=== PATIENT | female | born 1990 | race Caucasian/White ===

== ENCOUNTER 2022-02-14 12:47 | Emergency (ER) | payer OTHER, SELFPAY ==
--- NOTE | ~2022-02-14 | XR_ITS ---
EXAMINATION: XR CHEST CLINICAL INFORMATION: Covid positive COMPARISON: None TECHNIQUE: 2 views of the chest were obtained. FINDINGS: No significant abnormality is noted involving the heart, lungs, mediastinum, bony thorax or soft tissues. XR/XR chest 2V IMPRESSION: Unremarkable examination.
[2022-02-14 13:01] VITALS: BP 176/98; PULSE 109; RESP 20; TEMP 36.5; O2SAT 100; BMI 70.4
[2022-02-14 14:47] LABS: Influenza A PCR NEGATIVE (Negative); Influenza B PCR NEGATIVE (Negative); Resp Syncy Virus RNA Qual PCR NEGATIVE (Negative); SARS COV2 PCR INHOUSE POSITIVE (Negative)
--- NOTE | 2022-02-14 17:00 | ED_ITS ---
HPI - General Adult General Chief complaint: Upper Respiratory Symptoms Stated complaint: cold symptoms Time Seen by Provider: 02/14/22 16:34 History of Present Illness HPI narrative: Patient complains of fever cough body aches for 1 day, she has had COVID exposures, she has had 3 COVID shots, she is not short of breath, when she coughs she does get some pain in her chest but only when she coughs Related Data Previous Rx's Medication Instructions Recorded nirmatrelvir 300 mg (150 mg See Rx Instructions PO .COMPLEX 02/14/22 x2)-ritonavir 100 mg tablet,dose #30 ea pack(EUA) (Paxlovid) Allergies Allergy/AdvReac Type Severity Reaction Status Date / Time diazepam [From Valium] Allergy Palpitation Verified 02/14/22 16:44 s sumatriptan [From Imitrex] Allergy Palpitation Verified 02/14/22 16:44 s topiramate [From Topamax] Allergy Palpitation Verified 02/14/22 16:44 s Review of Systems Review of Systems: Positive for fever cough body aches Negatives are no chills no dizziness no weakness no fainting no feeling faint no headache no sore throat no neck pain no stiff neck, chest pain only with cough no other chest pain no exertional pain no shortness of breath no abdominal pain no nausea vomiting or diarrhea no dysuria no leg swelling no pain in the calf, no rashes Yes all other systems are reviewed and are negative [facility] Past Medical History Source: nursing notes reviewed Social History Social History Advance Directives: No Advance Directives Information Provided: Yes Physical Exam ED Vital Signs: Vital Signs - 24 hr 02/14/22 13:01 Temperature 97.7 F Pulse Rate 109 H Respiratory Rate 20 Blood Pressure 176/98 H Pulse Oximetry 100 Oxygen Delivery Method Room Air BMI result Body Mass Index 70.4 General appearance no distress comfortable breathing easily Eyes no redness or discharge The sinuses nontender The pharynx is clear well-hydrated no redness swelling or exudate Neck is supple Chest is clear to auscultation with full symmetric equal breath sounds no respiratory distress Heart no murmur Abdomen soft nontender Extremities for range of motion x4, no peripheral edema, no calf tenderness or swelling Skin no rash Neuro no focal deficits Course Course Course Narrative: COVID positive patient normal x-ray no shortness of breath is given a script for Paxlovid, she does not take any other medications I did repeat her pulse manually which was 88 on repeat exam prior to discharge Medical Decision Making Lab Data Lab results reviewed: Yes I reviewed the patient's lab results. Labs: Lab Results 02/14/22 Range/Units 14:04 Influenza Type A (PCR) NEGATIVE (Negative) Influenza Type B (PCR) NEGATIVE (Negative) RSV RNA Qual (PCR) NEGATIVE (Negative) SARS-CoV-2 RNA (RT-PCR) POSITIVE A (Negative) Discharge Plan Discharge Clinical Impression: COVID-19 Patient Disposition: Home, Self-Care Additional Instructions: COVID test was positive Chest x-ray was normal Prescription was written for Paxlovid medication for COVID Return any time for any worse condition, difficulty breathing any concerns or worse condition COVID breathing exercises are sometimes helpful Prescriptions: New Paxlovid (EUA) 300 mg (150 mg x 2)-100 mg tablets,dose pack See Rx Instructions .ROUTE .COMPLEX Qty: 30 0RF Rx Instructions: take TWO 150 mg tablets of nirmatrelvir with ONE 100 mg tablet of ritonavir twice daily for 5 days Stand Alone Forms: Work/School Release Interventions: ED Discharge Assessment Last Done: 02/14/22 18:17 Discharge Date/Time: 02/14/22 18:18
== END 2022-02-14 18:18 | disposition home or self-care (01) ==
PROVIDERS: Emergency Provider Student in an Organized Health Care Education/Training Program
DX: U07.1 COVID-19 (principal)
CPT/HCPCS: 0241U; 71046; 99282; 99283

== ENCOUNTER 2022-05-01 08:20 | Emergency (ER) | payer OTHER, SELFPAY ==
--- NOTE | ~2022-05-01 | CT_ITS ---
EXAMINATION: CT ABDOMEN AND PELVIS WITHOUT CONTRAST CLINICAL INFORMATION: Right-sided abdominal pain and gross hematuria. COMPARISON: None TECHNIQUE: Multidetector volumetric imaging was performed from the superior aspect of the liver through the pubic symphysis. Sagittal and coronal reformatted images were obtained on the technologist's workstation. This CT examination was performed using dose optimization techniques as appropriate, variously including the following: *Automated exposure control *Adjustment of mA and/or kV according to patient size (this includes techniques or standardized protocols for targeted exams where dose is matched to indication/reason for exam; i.e. extremities or head) *Use of iterative reconstruction technique DLP: 1807 mGy-cm FINDINGS: LOCALIZER IMAGES: Obese body habitus. Normal bowel gas pattern. LUNG BASES: Normal. No pulmonary consolidation or pleural effusion. LIVER: Diffuse hepatic steatosis and mild hepatomegaly. Liver parenchyma has attenuation of approximately 5-10 Hounsfield units. GALLBLADDER AND BILIARY TREE: Gallbladder is without radiopaque stones, wall thickening or pericholecystic fluid. No dilated bile ducts. PANCREAS: Normal for a noncontrast examination. No edema, pancreatic ductal dilatation or mass. SPLEEN: Normal. ADRENAL GLANDS: Normal. KIDNEYS AND URETERS: The kidneys have normal size and cortical thickness. No perinephric edema or fluid collection. No urolithiasis or hydroureteronephrosis. BLADDER: The urinary bladder is underdistended and not well evaluated with noncontrast imaging. Mild diffuse thickening of the bladder wall is suspected. There is mild perivesical edema. No bladder stones. BOWEL AND PERITONEUM: Stomach is unremarkable. No dilated loops of bowel. The appendix is normal. No overt bowel wall thickening or mesenteric fat stranding. No free fluid or pneumoperitoneum. ABDOMINAL WALL: Unremarkable. VASCULATURE: Abdominal aorta is normal in caliber. LYMPH NODES: No pathologic sized lymph nodes in the abdomen or pelvis. No inguinal lymphadenopathy. PELVIC VISCERA: The contraceptive device is well centered within the endometrium. No evidence of uterine or adnexal mass. No pelvic free fluid. MUSCULOSKELETAL: Multilevel discovertebral degenerative change of the visualized lower thoracic spine. Moderate degenerative disc disease of L5-S1. Bilateral pars interarticularis defects of L5 and grade 1 anterolisthesis of L5 on S1. CT/CT abdomen pelvis wo IV con IMPRESSION: * Diffuse hepatic steatosis and mild hepatomegaly. * The urinary bladder is underdistended and not well evaluated. There appears to be mild diffuse thickening of the bladder wall and mild perivesical edema. Findings are suggestive of cystitis. * L5 spondylolysis with grade 1 anterolisthesis of L5 on S1.
[2022-05-01 08:28] VITALS: BP 174/99; PULSE 104; RESP 18; TEMP 36.3; O2SAT 100; BMI 72.6
--- NOTE | 2022-05-01 08:45 | ED_ITS ---
HPI - Female Genitourinary General Chief complaint: Urogenital-Female <RAFIQ Dunne - Last Filed: 05/01/22 11:09> Stated complaint: blood in [place]ine <RAFIQ Dunne Last Filed: 05/01/22 11:09> Time Seen by Provider: 05/01/22 08:45 <RAFIQ Dunne Last Filed: 05/01/22 11:09> Source: patient <RAFIQ Dunne Last Filed: 05/01/22 11:09> Mode of arrival: ambulatory <RAFIQ Dunne Last Filed: 05/01/22 11:09> Limitations: no limitations <RAFIQ Dunne Last Filed: 05/01/22 11:09> History of Present Illness HPI Narrative: 31 yo female with history of HTN, obesity Who presents to the ER for evaluation of acute onset of gross hematuria and dysuria that started at 03:00 this morning when she was at work. She reports initially she had burning and pain with urination and noticed she was passing small blood clots. She states now the urine is very dark and is wine color. She reports ongoing pain with urination and some suprapubic discomfort. She has urgency and frequency as well. She has dribbling. She was just started on hydrochlorothiazide last week for lower extremity swelling and blood pressure. She denies any nausea, vomiting, fever, chills. She reports new onset, 2/10 right lower abdominal pain that just started about an hour ago. <RAFIQ Dunne Last Filed: 11:09> MD elicited complaint: dysuria and other ( Hematuria) <RAFIQ Dunne Last Filed: 05/01/22 11:09> Onset (ago): hour(s) (8) <RAFIQ Dunne Last Filed: 05/01/22 11:09> Location of symptoms: suprapubic <RAFIQ Dunne Last Filed: 05/01/22 11:09> Severity: moderate <RAFIQ Dunne Last Filed: 05/01/22 11:09> Female Urogenital Radiation: Non-Radiating <RAFIQ Dunne Last Filed: 05/01/22 11:09> Severity scale (1-10): 6 <RAFIQ Dunne - Last Filed: 05/01/22 11:09> Quality of pain: burning <RAFIQ Dunne - Last Filed: 05/01/22 11:09> Consistency: intermittent <RAFIQ Dunne - Last Filed: 05/01/22 11:09> Vaginal discharge: none <RAFIQ Dunne - Last Filed: 05/01/22 11:09> Vaginal bleeding: none <RAFIQ Dunne - Last Filed: 05/01/22 11:09> Urinary symptoms: Dysuria, Urgency, Frequency, Hematuria and Difficulty Urinating <RAFIQ Dunne - Last Filed: 05/01/22 11:09> Exacerbating factors: urination <RAFIQ Dunne - Last Filed: 05/01/22 11:09> Relieving factors: none <RAFIQ Dunne - Last Filed: 05/01/22 11:09> Associated symptoms: abdominal pain <RAFIQ Dunne - Last Filed: 05/01/22 11:09> Treatment prior to arrival: none <RAFIQ Dunne - Last Filed: 05/01/22 11:09> Sexual activity: No <RFAIQ Dunne - Last Filed: 05/01/22 11:09> Patient : No <RAFIQ Dunne - Last Filed: 05/01/22 11:09> Related Data Home medications: Previous Rx's Medication Instructions Recorded nirmatrelvir 300 mg (150 mg See Rx Instructions PO .COMPLEX 02/14/22 x2)-ritonavir 100 mg tablet,dose #30 ea pack(EUA) (Paxlovid) nitrofurantoin 100 mg PO Q12H 7 days #14 caps 05/01/22 monohydrate/macrocrystals 100 mg capsule (Macrobid) phenazopyridine 100 mg tablet 100 mg PO TID PRN pain 6 doses #6 05/01/22 (Pyridium) tabs <RAFIQ Dunne - Last Filed: 05/01/22 11:09> Allergies/Adverse reactions: Allergies Allergy/AdvReac Type Severity Reaction Status Date / Time diazepam [From Valium] Allergy Palpitation Verified 02/14/22 16:44 s sumatriptan [From Imitrex] Allergy Palpitation Verified 02/14/22 16:44 s topiramate [From Topamax] Allergy Palpitation Verified 02/14/22 16:44 s <RAFIQ Dunne - Last Filed: 05/01/22 11:09> Review of Systems Review of Systems: Yes all other systems are reviewed and are negative <RAFIQ Dunne - Last Filed: 05/01/22 11:09> [facility] Past Medical History Medical History: Medical History (Updated 05/01/22 @ 10:40 by RAFIQ Dunne) HTN (hypertension) Morbid obesity Sleep apnea <RAFIQ Dunne - Last Filed: 05/01/22 11:09> Surgical History: Surgical History (Updated 05/01/22 @ 09:27 by [place] Sin) [place] teeth extracted <RAFIQ Dunne - Last Filed: 05/01/22 11:09> Social History Social History: Social History Smoked in Last 30 Days: Yes Use of substances other than those prescribed or required for medical reasons: No Advance Directives: No Patient : No <RAFIQ Dunne - Last Filed: 05/01/22 11:09> Physical Exam Vital Signs: Vital Signs: Last Vital Signs Temp 98.0 F 05/01/22 09:26 Pulse 95 05/01/22 09:26 Resp 05/01/22 09:26 BP 140/84 H 05/01/22 09:26 Pulse Ox 100 05/01/22 09:26 O2 Del Method 05/01/22 09:26 BMI result Body Mass Index 72.6 <RAFIQ Dunne - Last Filed: 05/01/22 11:09> Vital Signs: Last Vital Signs Temp 98.0 F 05/01/22 09:26 Pulse 95 05/01/22 09:26 Resp 05/01/22 09:26 BP 140/84 H 05/01/22 09:26 Pulse Ox 100 05/01/22 09:26 O2 Del Method 05/01/22 09:26 BMI result Body Mass Index 72.6 <Juan Carlos Wong MD - Last Filed: 05/01/22 15:54> Appearance: Alert. Oriented X3. No acute distress. Eyes: Pupils equal, round and reactive to light. ENT: Pharynx normal. Neck: Normal inspection. Neck supple. CVS: Normal heart rate and rhythm. Pulses normal. Respiratory: No respiratory distress. Breath sounds normal. Abdomen: Obese, soft with suprapubic tenderness, no rebound or guarding. normal +BS x4 Skin: Skin warm and dry. Normal skin color. Normal skin turgor. No rashes. Extremities: No lower extremity edema. Neuro: Oriented X 3. No motor deficit. No sensory deficit. <RAFIQ Dunne - Last Filed: 05/01/22 11:09> Course Course Course Narrative: 31 yo female with history of obesity & HTN presenting to the ER for jai luation of gross hematuria and dysuria that started 7-8 hours ago. Will get labs, UA, CT scan for further evaluation. <RAFIQ Dunne - Last Filed: 05/01/22 11:09> Reevaluation(s) Reevaluation #1: Labs with gross hematuria and proteinuria. No elevated wbc's or nitrates. CT scan with evidence of cystitis, no evidence of kidney stones. Will treat for acute cystitis and have her stop taking her HCTZ. Will start on antibiotics and Pyridium. Will have her follow up with Urology. Patient agrees with plan. Stable for discharge home. <RAFIQ Dunne - Last Filed: 05/01/22 11:09> Medications Administered Discontinued Medications Generic Name Dose Route Start Last Admin Trade Name Freq PRN Reason Stop Dose Admin Nitrofurantoin Macrocrystals 100 mg 05/01/22 10:42 05/01/22 10:49 Nitrofurantoin Monohyd/M-Cryst 100 Mg Capsule PO 05/01/22 10:43 100 mg ONCE ONE Administration Phenazopyridine HCl 100 mg 05/01/22 10:42 05/01/22 10:49 Phenazopyridine Hcl 100 Mg Tablet PO 05/01/22 10:43 100 mg ONCE ONE Administration <RAFIQ Dunne - Last Filed: 05/01/22 11:09> Medications Administered Discontinued Medications Generic Name Dose Route Start Last Admin Trade Name Freq PRN Reason Stop Dose Admin Nitrofurantoin Macrocrystals 100 mg 05/01/22 10:42 05/01/22 10:49 Nitrofurantoin Monohyd/M-Cryst 100 Mg Capsule PO 05/01/22 10:43 100 mg ONCE ONE Administration Phenazopyridine HCl 100 mg 05/01/22 10:42 05/01/22 10:49 Phenazopyridine Hcl 100 Mg Tablet PO 05/01/22 10:43 100 mg ONCE ONE Administration <Juan Carlos Wong MD - Last Filed: 05/01/22 15:54> Medical Decision Making Differential Diagnosis Differential Diagnoses: The differential diagnosis associated with the presentation includes <RAFIQ Dunne - Last Filed: 05/01/22 11:09> Cystitis, UTI, pyelonephritis, kidney stone, interstitial nephritis, bladder cancer <RAFIQ Dunne - Last Filed: 05/01/22 11:09> Admission/Observation Consideration of admission/observation: Escalation of care including admission/observation considered <RAFIQ Dunne - Last Filed: 05/01/22 11:09> Lab Data MDM Lab Attestation statement: I reviewed the patient's lab results. <RAFIQ Dunne - Last Filed: 05/01/22 11:09> mild leukocytosis, stable H&H, normal kidney function <RAFIQ Dunne - Last Filed: 05/01/22 11:09> Result Diagrams: 05/01/22 09:34 05/01/22 09:34 <RAFIQ Dunne - Last Filed: 05/01/22 11:09> Labs: Lab Results 05/01/22 05/01/22 05/01/22 Range/Units 08:40 08:40 09:34 WBC 13.9 H (4.8-10.8) X10*3/uL RBC 4.85 (4.20-5.50) X10*6/uL Hgb 13.7 (12.0-16.0) g/dl Hct 41.7 (37.0-47.0) % MCV 86.0 (80.0-98.0) fL MCH 28.2 (27.0-33.0) pg MCHC 32.9 (31.0-35.0) g/dl RDW 13.3 (11.0-16.0) % Plt Count 247 (160-400) X10*3/uL MPV 11.7 (9.4-12.3) fL Immature Gran % (Auto) 0.3 (0.0-0.4) % Neut % (Auto) 74.1 H (45-73) % Lymph % (Auto) 19.2 L (20-40) % [place] % (Auto) 5.3 (2-11) % Eos % (Auto) 0.8 (0-4) % Baso % (Auto) 0.3 (0-2) % Lymph # (Auto) 2.7 (1.2-4.9) X10*3/uL [place] # (Auto) 0.7 (0.1-1.2) X10*3/uL Eos # (Auto) 0.1 (0.0-0.4) X10*3/uL Baso # (Auto) 0.0 (0.0-0.2) X10*3/uL Abs Immat Gran (auto) 0.04 H (0.00-0.03) X10*3/uL Absolute Neuts (auto) 10.3 H (2.0-8.3) x10*3/uL Absolute Nucleated RBC 0.000 (0.0-0.012) X10*3/uL Nucleated RBC % (auto) 0.0 (0.0-0.2) /100WBC Sodium (135-145) mmol/L Potassium (3.3-5.1) mmol/L Chloride (96-108) mmol/L Carbon Dioxide (22-29) mmol/L Anion Gap (12-20) BUN (9-16) mg/dL Creatinine (0.5-1.4) mg/dL Estim Creat Clear Calc Estimated GFR Random Glucose (60-115) mg/dL Calcium (8.4-10.2) mg/dL Magnesium (1.6-2.6) mg/dL Total Bilirubin (0.0-1.0) mg/dL Direct Bilirubin (0.0-0.5) mg/dL AST (5-31) U/L ALT (0-31) U/L Alkaline Phosphatase (39-117) U/L Total Protein (6.5-8.0) g/dL Albumin (3.5-5.0) g/dL Urine Color RED Urine Appearance Turbid Urine pH 6.0 (5.0-9.0) Ur Specific [place] 1.025 (1.005-1.025) Urine Protein 300 (3+) H (Neg-Trace) mg/dL Urine Glucose (UA) Negative (Negative) mg/dL Urine Ketones Negative (Negative) mg/dL Urine Blood Large (3+) H (Negative) Urine Nitrite Negative (Negative) Ur Leukocyte Esterase Negative (Negative) Urine RBC >20 H (0-2) /HPF Urine WBC 0-5 (0-5) /HPF Ur Squamous Epith Cells 3-5 (0-2) /HPF Urine Bacteria 1+ (None Seen) Hyaline Casts 0-2 (0-2) /LPF Urine Test NEGATIVE (NEGATIVE) 05/01/22 Range/Units 09:34 WBC (4.8-10.8) X10*3/uL RBC (4.20-5.50) X10*6/uL Hgb (12.0-16.0) g/dl Hct (37.0-47.0) % MCV (80.0-98.0) fL MCH (27.0-33.0) pg MCHC (31.0-35.0) g/dl RDW (11.0-16.0) % Plt Count (160-400) X10*3/uL MPV (9.4-12.3) fL Immature Gran % (Auto) (0.0-0.4) % Neut % (Auto) (45-73) % Lymph % (Auto) (20-40) % [place] % (Auto) (2-11) % Eos % (Auto) (0-4) % Baso % (Auto) (0-2) % Lymph # (Auto) (1.2-4.9) X10*3/uL [place] # (Auto) (0.1-1.2) X10*3/uL Eos # (Auto) (0.0-0.4) X10*3/uL Baso # (Auto) (0.0-0.2) X10*3/uL Abs Immat Gran (auto) (0.00-0.03) X10*3/uL Absolute Neuts (auto) (2.0-8.3) x10*3/uL Absolute Nucleated RBC (0.0-0.012) X10*3/uL Nucleated RBC % (auto) (0.0-0.2) /100WBC Sodium 137 (135-145) mmol/L Potassium 3.9 (3.3-5.1) mmol/L Chloride 100 (96-108) mmol/L Carbon Dioxide 29 (22-29) mmol/L Anion Gap 12 (12-20) BUN 21 H (9-16) mg/dL Creatinine 0.73 (0.5-1.4) mg/dL Estim Creat Clear Calc 188.2 Estimated GFR > 60 Random Glucose 125 H (60-115) mg/dL Calcium 9.1 (8.4-10.2) mg/dL Magnesium 1.9 (1.6-2.6) mg/dL Total Bilirubin 0.5 (0.0-1.0) mg/dL Direct Bilirubin 0.2 (0.0-0.5) mg/dL AST 23 (5-31) U/L ALT 23 (0-31) U/L Alkaline Phosphatase 107 (39-117) U/L Total Protein 7.8 (6.5-8.0) g/dL Albumin 3.8 (3.5-5.0) g/dL Urine Color Urine Appearance Urine pH (5.0-9.0) Ur Specific [place] (1.005-1.025) Urine Protein (Neg-Trace) mg/dL Urine Glucose (UA) (Negative) mg/dL Urine Ketones (Negative) mg/dL Urine Blood (Negative) Urine Nitrite (Negative) Ur Leukocyte Esterase (Negative) Urine RBC (0-2) /HPF Urine WBC (0-5) /HPF Ur Squamous Epith Cells (0-2) /HPF Urine Bacteria (None Seen) Hyaline Casts (0-2) /LPF Urine Test (NEGATIVE) <RAFIQ Dunne - Last Filed: 05/01/22 11:09> Lab Results 05/01/22 05/01/22 05/01/22 Range/Units 08:40 08:40 09:34 WBC 13.9 H (4.8-10.8) X10*3/uL RBC 4.85 (4.20-5.50) X10*6/uL Hgb 13.7 (12.0-16.0) g/dl Hct 41.7 (37.0-47.0) % MCV 86.0 (80.0-98.0) fL MCH 28.2 (27.0-33.0) pg MCHC 32.9 (31.0-35.0) g/dl RDW 13.3 (11.0-16.0) % Plt Count 247 (160-400) X10*3/uL MPV 11.7 (9.4-12.3) fL Immature Gran % (Auto) 0.3 (0.0-0.4) % Neut % (Auto) 74.1 H (45-73) % Lymph % (Auto) 19.2 L (20-40) % [place] % (Auto) 5.3 (2-11) % Eos % (Auto) 0.8 (0-4) % Baso % (Auto) 0.3 (0-2) % Lymph # (Auto) 2.7 (1.2-4.9) X10*3/uL [place] # (Auto) 0.7 (0.1-1.2) X10*3/uL Eos # (Auto) 0.1 (0.0-0.4) X10*3/uL Baso # (Auto) 0.0 (0.0-0.2) X10*3/uL Abs Immat Gran (auto) 0.04 H (0.00-0.03) X10*3/uL Absolute Neuts (auto) 10.3 H (2.0-8.3) x10*3/uL Absolute Nucleated RBC 0.000 (0.0-0.012) X10*3/uL Nucleated RBC % (auto) 0.0 (0.0-0.2) /100WBC Sodium (135-145) mmol/L Potassium (3.3-5.1) mmol/L Chloride (96-108) mmol/L Carbon Dioxide (22-29) mmol/L Anion Gap (12-20) BUN (9-16) mg/dL Creatinine (0.5-1.4) mg/dL Estim Creat Clear Calc Estimated GFR Random Glucose (60-115) mg/dL Calcium (8.4-10.2) mg/dL Magnesium (1.6-2.6) mg/dL Total Bilirubin (0.0-1.0) mg/dL Direct Bilirubin (0.0-0.5) mg/dL AST (5-31) U/L ALT (0-31) U/L Alkaline Phosphatase (39-117) U/L Total Protein (6.5-8.0) g/dL Albumin (3.5-5.0) g/dL Urine Color RED Urine Appearance Turbid Urine pH 6.0 (5.0-9.0) Ur Specific [place] 1.025 (1.005-1.025) Urine Protein 300 (3+) H (Neg-Trace) mg/dL Urine Glucose (UA) Negative (Negative) mg/dL Urine Ketones Negative (Negative) mg/dL Urine Blood Large (3+) H (Negative) Urine Nitrite Negative (Negative) Ur Leukocyte Esterase Negative (Negative) Urine RBC >20 H (0-2) /HPF Urine WBC 0-5 (0-5) /HPF Ur Squamous Epith Cells 3-5 (0-2) /HPF Urine Bacteria 1+ (None Seen) Hyaline Casts 0-2 (0-2) /LPF Urine Test NEGATIVE (NEGATIVE) 05/01/22 Range/Units 09:34 WBC (4.8-10.8) X10*3/uL RBC (4.20-5.50) X10*6/uL Hgb (12.0-16.0) g/dl Hct (37.0-47.0) % MCV (80.0-98.0) fL MCH (27.0-33.0) pg MCHC (31.0-35.0) g/dl RDW (11.0-16.0) % Plt Count (160-400) X10*3/uL MPV (9.4-12.3) fL Immature Gran % (Auto) (0.0-0.4) % Neut % (Auto) (45-73) % Lymph % (Auto) (20-40) % [place] % (Auto) (2-11) % Eos % (Auto) (0-4) % Baso % (Auto) (0-2) % Lymph # (Auto) (1.2-4.9) X10*3/uL [place] # (Auto) (0.1-1.2) X10*3/uL Eos # (Auto) (0.0-0.4) X10*3/uL Baso # (Auto) (0.0-0.2) X10*3/uL Abs Immat Gran (auto) (0.00-0.03) X10*3/uL Absolute Neuts (auto) (2.0-8.3) x10*3/uL Absolute Nucleated RBC (0.0-0.012) X10*3/uL Nucleated RBC % (auto) (0.0-0.2) /100WBC Sodium 137 (135-145) mmol/L Potassium 3.9 (3.3-5.1) mmol/L Chloride 100 (96-108) mmol/L Carbon Dioxide 29 (22-29) mmol/L Anion Gap 12 (12-20) BUN 21 H (9-16) mg/dL Creatinine 0.73 (0.5-1.4) mg/dL Estim Creat Clear Calc 188.2 Estimated GFR > 60 Random Glucose 125 H (60-115) mg/dL Calcium 9.1 (8.4-10.2) mg/dL Magnesium 1.9 (1.6-2.6) mg/dL Total Bilirubin 0.5 (0.0-1.0) mg/dL Direct Bilirubin 0.2 (0.0-0.5) mg/dL AST 23 (5-31) U/L ALT 23 (0-31) U/L Alkaline Phosphatase 107 (39-117) U/L Total Protein 7.8 (6.5-8.0) g/dL Albumin 3.8 (3.5-5.0) g/dL Urine Color Urine Appearance Urine pH (5.0-9.0) Ur Specific [place] (1.005-1.025) Urine Protein (Neg-Trace) mg/dL Urine Glucose (UA) (Negative) mg/dL Urine Ketones (Negative) mg/dL Urine Blood (Negative) Urine Nitrite (Negative) Ur Leukocyte Esterase (Negative) Urine RBC (0-2) /HPF Urine WBC (0-5) /HPF Ur Squamous Epith Cells (0-2) /HPF Urine Bacteria (None Seen) Hyaline Casts (0-2) /LPF Urine Test (NEGATIVE) <Rangel [place], MD - Last Filed: 05/01/22 15:54> Independent Interpretation I performed an independent interpretation of an: CT Scan <RAFIQ Dunne - Last Filed: 05/01/22 11:09> Interpretation: inflamed bladder, no visualized kidney stones. No other acute abnormality. <RAFIQ Dunne Last Filed: 05/01/22 11:09> Radiology Impression Discussion of test interpretation with radiology: I have reviewed the radiologist's reading. <RAFIQ Dunne - Last Filed: 05/01/22 11:09> Radiologist Impression: IMPRESSION: *? Diffuse hepatic steatosis and mild hepatomegaly. *? The urinary bladder is underdistended and not well evaluated. There appears to be mild diffuse thickening of the bladder wall and mild perivesical edema. Findings are suggestive of cystitis. *? 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 <RAFIQ Dunne - Last Filed: 05/01/22 11:09> Prescription Management I considered prescription management with: Pain Medication and Antibiotic <RAFIQ Dunne - Last Filed: 05/01/22 11:09> Chronic Conditions Patient?s care impacted by: Hypertension and Other ( Morbid obesity) <RAFIQ Dunne Last Fi led: 05/01/22 11:09> Attestation Attending Attestation: I personally reviewed PA/resident/nurse practitioner note. I reviewed a all results and treatment plan. I agree with the assessment and plan. I agree with disposition <Juan Carlos Wong MD - Last Filed: 05/01/22 15:54> Critical Care Time Critical Care Time Critical Care Time: No <RAFIQ Dunne - Last Filed: 05/01/22 11:09> Discharge Plan Discharge Clinical Impression: Cystitis <RAFIQ Dunne Last Filed: 05/01/22 11:09> Patient Disposition: Home, Self-Care <RAFIQ Dunne Last Filed: 05/01/22 11:09> Instructions: Interstitial Cystitis (ED) <RAFIQ Dunne Last Filed: 05/01/22 11:09> Additional Instructions: Your urine test today showed protein and blood. Your CT scan showed inflammation of the bladder. Take the prescribed antibiotic as directed. Complete the entire course. Take the prescribed medication as needed for pain. This may cause your urine to turn orange, this is a normal side effect. Increase oral hydration, make sure drinking plenty of water. Recommend following up with Urology for further evaluation of your bloody urine and bladder inflammation. If you develop new or worsening symptoms call 911 or come back to the ER for further evaluation. <RAFIQ Dunne - Last Filed: 05/01/22 11:09> Prescriptions: New phenazopyridine [Pyridium] 100 mg tablet 100 mg PO TID PRN (Reason: pain) Qty: 6 0RF nitrofurantoin monohyd/m-cryst [Macrobid] 100 mg capsule 100 mg PO Q12H 7 Days Qty: 14 0RF Rx Instructions: must administer with a meal/food No Action Paxlovid (EUA) 300 mg (150 mg x 2)-100 mg tablets,dose pack See Rx Instructions .ROUTE .COMPLEX Qty: 30 0RF Rx Instructions: take TWO 150 mg tablets of nirmatrelvir with ONE 100 mg tablet of ritonavir twice daily for 5 days <RAFIQ Dunne - Last Filed: 05/01/22 11:09> Referrals: [facility] [place] [facility] Services [Provider Group] <RAFIQ Dunne - Last Filed: 05/01/22 11:09> Stand Alone Forms: Work/School Release <RAFIQ Dunne - Last Filed: 05/01/22 11:09> Interventions: ED Discharge Assessment Last Done: 05/01/22 10:57 <RAFIQ Dunne - Last Filed: 05/01/22 11:09> Discharge Date/Time: 05/01/22 10:57 <RAFIQ Dunne - Last Filed: 05/01/22 11:09>
[2022-05-01 08:50] LABS: UPreg QC Valid YES; Urine Pregnancy NEGATIVE (NEGATIVE)
[2022-05-01 08:54] LABS: Appearance Urine Turbid; Color Urine RED; Glucose Urine UA Negative (Negative); Leukocyte Esterase Urine Negative (Negative); Nitrite Urine Negative (Negative); UMIC TRIGGER UACC YES; Urine Blood Large (3+) (Negative); Urine Ketones Negative (Negative); Urine Protein 300 (3+) mg/dL (Neg-Trace)
[2022-05-01 08:55] LABS: Specific Gravity - Urine 1.025 (1.005-1.025)
[2022-05-01 09:05] LABS: Bacteria Urine 1+ (None Seen); Hyaline Casts Urine 0-2 /LPF (0-2); RBC Urine >20 /HPF (0-2); WBC Urine 0-5 /HPF (0-5)
[2022-05-01 09:26] VITALS: BP 140/84; PULSE 95; RESP 20; TEMP 36.7; O2SAT 100
[2022-05-01 09:37] LABS: MANUAL DIFF FLAG NO
[2022-05-01 09:40] LABS: Basophils Percent Auto 0.3 % (0-2); Eosinophils Absolute Auto 0.1 X10*3/uL (0.0-0.4); Eosinophils Percent Auto 0.8 % (0-4); Hematocrit 41.7 % (37.0-47.0); Hemoglobin 13.7 g/dl (12.0-16.0); Imm Gran Abs Auto 0.04 X10*3/uL (0.00-0.03); Imm Gran Pct Auto 0.3 % (0.0-0.4); Lymphocytes Absolute Auto 2.7 X10*3/uL (1.2-4.9); Lymphocytes Percent Auto 19.2 % (20-40); Mean Corpuscular HGB Conc 32.9 g/dl (31.0-35.0); Mean Corpuscular Hemoglobin 28.2 pg (27.0-33.0); Mean Platelet Volume 11.7 fL (9.4-12.3); Monocytes Absolute Auto 0.7 X10*3/uL (0.1-1.2); Monocytes Percent Auto 5.3 % (2-11); Neutrophils Absolute Auto 10.3 x10*3/uL (2.0-8.3); Neutrophils Percent Auto 74.1 % (45-73); Platelet Count 247 X10*3/uL (160-400); Red Blood Count 4.85 X10*6/uL (4.20-5.50); Red Cell Distribution Width 13.3 % (11.0-16.0); White Blood Count 13.9 X10*3/uL (4.8-10.8)
[2022-05-01 10:17] LABS: Alanine Aminotransferase 23 U/L (0-31); Albumin Level 3.8 g/dL (3.5-5.0); Alkaline Phosphatase 107 U/L (39-117); Anion Gap 12 (12-20); Aspartate Amino Transferase 23 U/L (5-31); Bilirubin Direct 0.2 mg/dL (0.0-0.5); Bilirubin Total 0.5 mg/dL (0.0-1.0); Blood Urea Nitrogen 21 mg/dL (9-16); Calcium 9.1 mg/dL (8.4-10.2); Carbon Dioxide 29 mmol/L (22-29); Chloride 100 mmol/L (96-108); Creatinine Clr Calc Pharmacy 188.2; Estimated Glomerular Filt Rate > 60; Glucose Random 125 mg/dL (60-115); Magnesium 1.9 mg/dL (1.6-2.6); Potassium 3.9 mmol/L (3.3-5.1); Sodium 137 mmol/L (135-145); Total Protein 7.8 g/dL (6.5-8.0)
[2022-05-01] MEDS: Phenazopyridine HCL 100 MG TABLET PO (10:49)
[2022-05-01] MEDS: Nitrofurantoin Monohyd/M-Cryst 100 MG CAPSULE PO (10:49)
== END 2022-05-01 10:57 | disposition home or self-care (01) ==
PROVIDERS: Physician Assistant; Emergency Provider Emergency Medicine; PCP Family Medicine
DX: N30.91 Cystitis, unspecified with hematuria (principal); I10 Essential (primary) hypertension; E66.9 Obesity, unspecified; Z68.45 Body mass index [BMI] 70 or greater, adult; R30.9 Painful micturition, unspecified
CPT/HCPCS: 36415; 74176; 80048; 80076; 81001; 81025; 83735; 85025; 99284

== ENCOUNTER 2022-11-30 03:14 | Emergency (ER) | payer OTHER, SELFPAY ==
[2022-11-30 03:38] VITALS: BP 153/97; PULSE 66; RESP 20; TEMP 36.7; O2SAT 100; BMI 76.0
--- NOTE | 2022-11-30 04:03 | ED.DENTAL ---
HPI - Dental/Oral General Chief complaint: Dental/Oral Stated complaint: Pain in mouth Time Seen by Provider: 11/30/22 03:47 Source: patient Mode of arrival: ambulatory Limitations: no limitations History of Present Illness HPI Narrative: 32-year-old female s/p dental extraction of 14 upper teeth yesterday, patient is only on ibuprofen 800 mg tablet which is not controlling her pain, patient also takes amoxicillin prescribed by the dentist. Came in today complaining of severe mouth pain that is not controlled by ibuprofen. No fever, no chills Related Data Previous Rx's Medication Instructions Recorded nirmatrelvir 300 mg (150 mg See Rx Instructions PO .COMPLEX 02/14/22 x2)-ritonavir 100 mg tablet,dose #30 ea pack (Paxlovid) nitrofurantoin 100 mg PO Q12H 7 days #14 caps 05/01/22 monohydrate/macrocrystals 100 mg capsule (Macrobid) phenazopyridine 100 mg tablet 100 mg PO TID PRN pain 6 doses #6 05/01/22 (Pyridium) tabs oxycodone 5 mg tablet 5 mg PO Q8H PRN pain #10 tabs 11/30/22 Allergies Allergy/AdvReac Type Severity Reaction Status Date / Time diazepam [From Valium] Allergy Palpitation Verified 11/30/22 03:58 s sumatriptan [From Imitrex] Allergy Palpitation Verified 11/30/22 03:58 s topiramate [From Topamax] Allergy Palpitation Verified 11/30/22 03:58 s Review of Systems Review of Systems: All other systems are reviewed and are negative Constitutional: Reports as per HPI and Reports no additional constitutional complaints Eyes: Reports as per HPI and Reports no additional eye complaints Reports system reviewed and no additional complaints, except as documented Cardiovascular: Reports as per HPI and Reports no additional cardiovascular complaints Respiratory: Reports as per HPI and Reports no additional respiratory complaints Gastrointestinal: Reports as per HPI and Reports no additional gastrointestinal complaints Genitourinary: Reports no additional female genitourinary complaints Musculoskeletal: Reports no additional musculoskeletal complaints Skin/Breast: Reports system reviewed and no additional complaints, except as docu Psychiatric: Reports no additional psychiatric complaints Endocrine: Reports no additional endocrine complaints Hematologic/Lymphatic: Reports no additional hematologic/lymphatic complaints Allergic/Immunologic: Reports no additional allergic/immunologic complaints Reports system reviewed and no additional complaints, except as documented and Reports Abnormal speech present [facility] Past Medical History Medical History HTN (hypertension) Morbid obesity Sleep apnea Surgical History [place] teeth extracted Social History Social History Alcohol intake: current Alcohol intake frequency: holidays/special occasions only Smoked in Last 30 Days: Yes Use of substances other than those prescribed or required for medical reasons: No Advance Directives: No Advance Directives Information Provided: Yes Patient : No Physical Exam Vital Signs: Vital Signs: Last Vital Signs Temp 98.1 F 11/30/22 03:38 Pulse 66 11/30/22 03:38 Resp 20 11/30/22 03:38 BP 153/97 H 11/30/22 03:38 Pulse Ox 100 11/30/22 03:38 O2 Del Method Room Air 11/30/22 03:38 BMI result Body Mass Index 76.0 Vital signs have been reviewed as appeared to be correct. Blood pressure normal. Heart rate normal. Respiration rate normal. Temperature normal. Oxygen saturation normal. Appearance: Alert. Oriented X3. No acute distress. Head: Normal external exam. Normocephalic. Atraumatic. No Gruber signs noted. No raccoon eyes noted, s/p all upper teeth extraction, diffuse gum tenderness with mild swelling (patient is already on amoxicillin by dentist). Eyes: PERRLA. EOMI. Conjunctiva and sclera normal. Eyelids normal. ENT: TM's Normal. Pharynx normal. Uvula midline. Moist mucous membranes. No trismus noted. No drooling noted. No muffled voice noted. Neck: Normal inspection. Neck supple. FROM. No adenopathy. Thyroid Normal. No meningeal signs. No neck mass noted. CVS: Normal heart rate and rhythm. Heart sound normal. No murmurs noted. Pulses normal throughout. Respiratory: No respiratory distress. Painless inspiration. Breath sounds normal. No wheezes/rales/rhonchi noted. Chest nontender. No accessory muscle usage noted or decreased air movement noted. Abdomen: Soft and nontender. Bowel sounds normal in all 4 quadrants. No distention noted. No organomegaly noted. No visible injury noted. Back: No CVA tenderness. Full range of motion noted. Skin: Skin warm and dry. Normal skin color. Normal skin turgor. No rashes/lesions/lacerations noted. Extremities: No lower extremity edema. Extremities exhibit normal range of motion. Extremities nontender. Neuro: Oriented X 3. Cranial nerve exam: II-XII are grossly intact No motor deficit. No sensory deficit. Reflexes normal. Course Course Course Narrative: S/p upper dental extraction with insufficient pain control will prescribe the patient oxycodone and continue with the antibiotic as per dentist. Medical Decision Making Differential Diagnosis Differential Diagnoses: The differential diagnosis associated with the presentation includes (Post extraction pain, gingivitis, dental abscess.) Admission/Observation Consideration of admission/observation: Escalation of care including admission/observation considered Discharge Plan Discharge Clinical Impression: Toothache Patient Disposition: Home, Self-Care Instructions: Toothache (ED) Prescriptions: New oxycodone 5 mg tablet 5 mg PO Q8H PRN (Reason: pain) Qty: 10 0RF Rx Instructions: Partial Fill upon patient request. No Action Paxlovid 300 mg (150 mg x 2)-100 mg tablets,dose pack See Rx Instructions .ROUTE .COMPLEX Qty: 30 0RF Rx Instructions: take TWO 150 mg tablets of nirmatrelvir with ONE 100 mg tablet of ritonavir twice daily for 5 days phenazopyridine [Pyridium] 100 mg tablet 100 mg PO TID PRN (Reason: pain) Qty: 6 0RF nitrofurantoin monohyd/m-cryst [Macrobid] 100 mg capsule 100 mg PO Q12H 7 Days Qty: 14 0RF Rx Instructions: must administer with a meal/food
== END 2022-11-30 04:22 | disposition home or self-care (01) ==
PROVIDERS: Emergency Provider Emergency Medicine; PCP Family Medicine
DX: K08.89 Other specified disorders of teeth and supporting structures (principal); Z79.899 Other long term (current) drug therapy
CPT/HCPCS: 99283; 99284

== ENCOUNTER 2023-03-14 18:02 | Emergency (ER) | payer OTHER, SELFPAY ==
[2023-03-14 18:06] VITALS: BP 190/113; PULSE 92; RESP 18; TEMP 36.3; O2SAT 100; BMI 71.2
--- NOTE | 2023-03-14 18:10 | ED.GENADULT ---
HPI - General Adult General Chief complaint: Upper Respiratory Symptoms Stated complaint: SORE THROAT/FLU LIKE SYMPTOMS Time Seen by Provider: 03/14/23 19:06 Source: patient Mode of arrival: ambulatory Limitations: no limitations History of Present Illness HPI narrative: 32 yold female with pmh of HTN presents to the ED for sore throat, coughing, and bodyaches. patient states her had similar symtpoms. patietn denies any chest pain or shortness of breath. Related Data Previous Rx's Medication Instructions Recorded nirmatrelvir 300 mg (150 mg See Rx Instructions PO .COMPLEX 02/14/22 x2)-ritonavir 100 mg tablet,dose #30 ea pack (Paxlovid) nitrofurantoin 100 mg PO Q12H 7 days #14 caps 05/01/22 monohydrate/macrocrystals 100 mg capsule (Macrobid) phenazopyridine 100 mg tablet 100 mg PO TID PRN pain 6 doses #6 05/01/22 (Pyridium) tabs oxycodone 5 mg tablet 5 mg PO Q8H PRN pain #10 tabs 11/30/22 Allergies Allergy/AdvReac Type Severity Reaction Status Date / Time diazepam [From Valium] Allergy Palpitation Verified 03/14/23 18:06 s sumatriptan [From Imitrex] Allergy Palpitation Verified 03/14/23 18:06 s topiramate [From Topamax] Allergy Palpitation Verified 03/14/23 18:06 s Review of Systems Review of Systems: Cough, bodyaches, and sore throaat Yes all other systems are reviewed and are negative PMFSH Past Medical History Medical History HTN (hypertension) Morbid obesity Sleep apnea Surgical History [place] teeth extracted Social History Social History Alcohol intake: current Alcohol intake frequency: holidays/special occasions only Advance Directives: No Advance Directives Information Provided: No Physical Exam ED Vital Signs: Vital Signs - 24 hr 03/14/23 18:06 03/14/23 19:20 Temperature 97.3 F Pulse Rate 92 85 Respiratory Rate 18 18 Blood Pressure 190/113 H 158/94 H Pulse Oximetry 100 Oxygen Delivery Method Room Air BMI result Body Mass Index 71.2 Const General: cooperative, healthy appearing, comfortable, no acute distress, well developed, alert, awake and Physically active Orientation/consciousness: oriented to person, oriented to place, oriented to time and patient oriented x3 HENMT Head: Yes normal to inspection, Yes No palpable skull fracture present, Yes normocephalic, Yes atraumatic and No abrasion Ears: hearing grossly normal bilaterally, external ears normal, TM's normal bilaterally, TM normal on the right, TM normal on the left, EAC's normal, mastoids normal and no periauricular adenopathy Throat: Yes posterior oropharynx normal, Yes tonsils normal and Yes uvula midline Eyes General: appearance normal, both eyes and all related structures Neck Neck: Yes normal visual inspection, Yes full ROM, Yes no lymphadenopathy, Yes no meningeal signs, Yes trachea midline, Yes supple, No anterior neck swelling and No tender Chest Chest palpation & inspection: normal inspection of the chest and normal palpation of entire chest wall Resp Effort & Inspection: normal respiratory effort and able to speak in complete sentences Auscultation: clear to auscultation bilaterally Cardio Jugular venous distension: no JVD Heart sounds: S1 normal heart sound present and S2 normal heart sound present GI Inspection: Yes normal to inspection Palpation (GI): Soft to palpation, not firm, nontender and no guarding General: No CVA tenderness and Yes no CVA tenderness Back/Spine/Pelvis Back: no CVA tenderness, No CVA tenderness and No back tenderness Skin General skin exam: no rashes or lesions noted, elasticity normal and turgor normal Neuro General: oriented to person, oriented to place, oriented to time, patient oriented x3, gait normal, tone normal, moves all extremities, Normal light touch and pain sensation, no meningeal signs, no focal motor deficits, CN's II-XI intact bilaterally and normal sensation to monofilament Extrem General: Yes normal to inspection and Yes full ROM Psych Appearance: grossly normal, well kempt and not disheveled Course Course Course Narrative: RME: 32 yold female presents to the ED for sore throat, vomitting, cough and diarrhea. patient denies chest and shortness pain. Strep and SARS ordered Medical Decision Making Medical Decision Making [facility] [place] Narrative: 32-year-old female with URI symptoms such as sore throat coughing body aches. Patient denies any chest pain or shortness of breath. Patient positive for RSV. Blood pressure improved. Patient did not take her hydrochlorothiazide today. Patient informed to take her hydrochlorothiazide and educated on risk of heart attack stroke and kidney failure. Patient well-appearing Differential Diagnosis Differential Diagnoses: The differential diagnosis associated with the presentation includes (RSV COVID SARs) Admission/Observation Consideration of admission/observation: Escalation of care including admission/observation considered Lab Data MDM Lab Attestation statement: I reviewed the patient's lab results. Labs: Lab Results 03/14/23 Range/Units 18:35 Influenza Type A (PCR) NEGATIVE (Negative) Influenza Type B (PCR) NEGATIVE (Negative) RSV RNA Qual (PCR) POSITIVE A (Negative) SARS-CoV-2 RNA (RT-PCR) NEGATIVE (Negative) S. pyogenes GrpA VANESSA Negative (Negative) External Record Review External record reviewed: Other (Prior visit) Discharge Plan Discharge Clinical Impression: Respiratory syncytial virus (RSV) Patient Disposition: Home, Self-Care Instructions: Respiratory Syncytial Virus (ED) Additional Instructions: Return to the ED for any chest pain, shortness of breath, weakness, dizziness, or any other concerning symptoms. Please follow-up with the primary care provider. Prescriptions: No Action Paxlovid 300 mg (150 mg x 2)-100 mg tablets,dose pack See Rx Instructions .ROUTE .COMPLEX Qty: 30 0RF Rx Instructions: take TWO 150 mg tablets of nirmatrelvir with ONE 100 mg tablet of ritonavir twice daily for 5 days phenazopyridine [Pyridium] 100 mg tablet 100 mg PO TID PRN (Reason: pain) Qty: 6 0RF nitrofurantoin monohyd/m-cryst [Macrobid] 100 mg capsule 100 mg PO Q12H 7 Days Qty: 14 0RF Rx Instructions: must administer with a meal/food oxycodone 5 mg tablet 5 mg PO Q8H PRN (Reason: pain) Qty: 10 0RF Rx Instructions: Partial Fill upon patient request. Stand Alone Forms: Work/School Release Interventions: ED Discharge Assessment Last Done: 03/14/23 20:26 Discharge Date/Time: 03/14/23 20:26 Print Language: Indonesian
[2023-03-14 18:54] LABS: IDNOW Serial# 08D9AD1C; Strep A Nucleic Acid Negative (Negative)
[2023-03-14 19:20] VITALS: BP 158/94; PULSE 85; RESP 18
[2023-03-14 19:21] LABS: Influenza A PCR NEGATIVE (Negative); Influenza B PCR NEGATIVE (Negative); Resp Syncy Virus RNA Qual PCR POSITIVE (Negative); SARS COV2 PCR INHOUSE NEGATIVE (Negative)
== END 2023-03-14 20:26 | disposition home or self-care (01) ==
PROVIDERS: Physician Assistant; Emergency Provider Internal Medicine; PCP Family Medicine
DX: J22 Unspecified acute lower respiratory infection (principal); J02.9 Acute pharyngitis, unspecified; I10 Essential (primary) hypertension; R05.9 Cough, unspecified; Z20.822 Contact with and (suspected) exposure to COVID-19; Z20.828 Contact with and (suspected) exposure to other viral communicable diseases
CPT/HCPCS: 0241U; 87651; 99282

== ENCOUNTER 2023-12-02 13:15 | Emergency (ER) | payer OTHER, SELFPAY ==
[2023-12-02 13:29] VITALS: BP 154/99; PULSE 100; RESP 18; TEMP 36.4; O2SAT 98; BMI 72.2
[2023-12-02 14:30] LABS: Influenza A PCR NEGATIVE (Negative); Influenza B PCR NEGATIVE (Negative); Resp Syncy Virus RNA Qual PCR NEGATIVE (Negative); SARS COV2 PCR INHOUSE POSITIVE (Negative)
[2023-12-02 16:52] VITALS: BP 153/101; PULSE 85; RESP 18; TEMP 36.6; O2SAT 98
--- NOTE | 2023-12-02 16:56 | ED.GENADULT ---
HPI - General Adult General Chief complaint: General Medical Stated complaint: covid symptoms Time Seen by Provider: 12/02/23 16:56 Source: patient Mode of arrival: ambulatory Limitations: no limitations History of Present Illness ED Provider: MAGNO KNIGHT PA-C HPI narrative: 33 year old female with pmhx significant for migraines, HTN, morbid obesity presents to the ED today for evaluation of myalgias, chills, nasal congestion, and loss of taste/ smell x2 days. Admits her best friend and fiance both have covid. Denies fever, sob, dyspnea, chest pain. Related Data Previous Rx's ?Medication ?Instructions ?Recorded nirmatrelvir 300 mg (150 mg See Rx Instructions PO .COMPLEX 02/14/22 x2)-ritonavir 100 mg tablet,dose #30 ea pack (Paxlovid) nitrofurantoin 100 mg PO Q12H 7 days #14 caps 05/01/22 monohydrate/macrocrystals 100 mg capsule (Macrobid) phenazopyridine 100 mg tablet 100 mg PO TID PRN pain 6 doses #6 05/01/22 (Pyridium) tabs oxycodone 5 mg tablet 5 mg PO Q8H PRN pain #10 tabs 11/30/22 cyclobenzaprine 5 mg tablet 5 mg PO TID PRN muscle spasm #10 12/02/23 tabs fluticasone propionate 50 1 spray intranasal DAILY PRN 12/02/23 mcg/actuation nasal congestion 3 days #16 grams spray,suspension (Flonase Allergy Relief) Allergies Allergy/AdvReac Type Severity Reaction Status Date / Time diazepam [From Valium] Allergy Palpitation Verified 12/02/23 13:30 s sumatriptan [From Imitrex] Allergy Palpitation Verified 12/02/23 13:30 s topiramate [From Topamax] Allergy Palpitation Verified 12/02/23 13:30 s Review of Systems Review of Systems: Constitutional: No fever, chills, fatigue, night sweats, weight changes ENT/Mouth: No ear pain, hearing loss, nasal congestion, sinus pain, rhinorrhea, sore throat, +congestion, +loss of taste/ smell Eyes: No eye pain, swelling, redness, vision changes, discharge Cardio: No chest pain, palpitations, HUNTER, orthopnea, peripheral edema Pulm: No SOB, cough, sputum, wheezing, dyspnea, hemoptysis GI: No nausea, vomiting, hematemesis, abdominal pain, diarrhea, constipation, hematochezia, melena : No irregular bleeding, dysuria, frequency, urgency, hesitancy, hematuria, flank pain, urinary flow changes, urinary incontinence or retention MSK: No back pain, neck pain, joint pain, myalgias Skin: No lesions, rashes Neuro: No weakness, numbness, paresthesias, LOC, dizziness, headache Psych: No anxiety/panic, depression, SI/HI, AH/VH All other systems reviewed and are negative. [facility] Past Medical History Attestation statement: The following information was validated with the patient. Source: old records reviewed and nursing notes reviewed Medical History Morbid obesity HTN (hypertension) Sleep apnea Surgical History [place] teeth extracted Social History Social History Alcohol intake: current Alcohol intake frequency: holidays/special occasions only Advance Directives: No Advance Directives Information Provided: No Do you have a plan to hurt others: No Plan Physical Exam ED Vital Signs: Vital Signs - 24 hr 12/02/23 13:29 12/02/23 16:52 12/02/23 16:57 Temperature 97.6 F 97.8 F 97.8 F Pulse Rate 100 85 85 Respiratory Rate 18 18 18 Blood Pressure 154/99 H 153/101 H 153/101 H Pulse Oximetry 98 98 98 Oxygen Delivery Method Room Air Room Air BMI result Body Mass Index 72.2 Vital signs stable, afebrile, not hypoxic Const General: cooperative, healthy appearing, comfortable and no acute distress Orientation/consciousness: patient oriented x3 Limitations: no limitations HENMT Other: Posterior oropharynx without erythema or edema. No tonsillar exudates. No peritonsillar masses. Uvula midline. Controlling secretions and speaking complete sentences. Head: Yes normal to inspection, Yes No palpable skull fracture present, Yes normocephalic and Yes atraumatic Face and sinus: Yes normal facial exam Mouth: Normal oral and palatal mucosa present Eyes General: appearance normal, both eyes and all related structures Pupils: Equal, round and reactive pupils present Neck Neck: Yes normal visual inspection, Yes full ROM and Yes no lymphadenopathy Chest Chest palpation & inspection: normal inspection of the chest and normal palpation of entire chest wall Resp Effort & Inspection: normal respiratory effort and able to speak in complete sentences Auscultation: clear to auscultation bilaterally Cardio Rate: regular rate Rhythm: regular rhythm Skin General skin exam: no rashes or lesions noted Neuro General: patient oriented x3 Cranial nerves: Yes Equal, round and reactive pupils present Course Course Course Narrative: 1700 -- patient tested positive for COVID. She tested negative for flu, RSV. I did discuss results with patient. Educated on symptomatic treatment. Will send Flonase to pharmacy for congestion. Advised to speak with PCP regarding Paxlovid. Patient has remained stable throughout ED visit today. Discussed worrisome signs and symptoms and when to return to the ED. All questions answered at this time. Patient is agreeable with disposition and stable for discharge. Medical Decision Making Medical Decision Making [facility] Narrative: 33 year old female with pmhx significant for migraines, HTN, morbid obesity presents to the ED today for evaluation of myalgias, chills, nasal congestion, and loss of taste/ smell x2 days. Patient hypertensive, vitals otherwise WNL. Afebrile. Not hypoxic. Lungs are CTA bilaterally. Posterior oropharynx and bilateral EAC/TMs are WNL. Skin warm, dry, intact, no rashes. Patient likely has COVID secondary to recent exposure. Plan for viral serology and re-evaluation. Differential Diagnosis Differential Diagnoses: The differential diagnosis associated with the presentation includes as above. Admission/Observation not indicated. Lab Data [facility] Lab Attestation statement: I reviewed the patient's lab results. as above. Labs: Lab Results 12/02/23 Range/Units 13:46 Influenza Type A (PCR) NEGATIVE (Negative) Influenza Type B (PCR) NEGATIVE (Negative) RSV RNA Qual (PCR) NEGATIVE (Negative) SARS-CoV-2 RNA (RT-PCR) POSITIVE A (Negative) External Record Review External record reviewed: Inpatient record Prescription Management I considered prescription management with: Other (flonase) Social Determinants Patient?s care significantly limited by Social Determinants of Health including: Other Social Determinant of Health Critical Care Time Critical Care Time Critical Care Time: No Discharge Plan Discharge Clinical Impression: COVID-19 Patient Disposition: Home, Self-Care Instructions: COVID-19 (Coronavirus Disease 2019) (ED) Additional Instructions: Today you tested positive for COVID-19.? Take Ibuprofen or Tylenol as needed for fevers or body aches.? Quarantine for 5 days and ensure you wear a mask. After 5 days you should wear a mask for 5 days after that.? Practice social distancing and good hand hygiene. Drink plenty of fluids. Follow-up with your primary care provider this week. Return to the emergency department with new or worsening symptoms. In case of emergency call 911 You can purchase a pulse oximeter from your local pharmacy or grocery store, and monitor your oxygen saturation if it goes below 94% you should return to the emergency department for further evaluation. Prescriptions: New fluticasone propionate [Flonase Allergy Relief] 50 mcg/actuation spray,suspension 1 spray intranasal DAILY PRN (Reason: congestion) 3 Days Qty: 16 0RF Rx Instructions: administer into each nostril cyclobenzaprine 5 mg tablet 5 mg PO TID PRN (Reason: muscle spasm) Qty: 10 0RF No Action Paxlovid 300 mg (150 mg x 2)-100 mg tablets,dose pack See Rx Instructions .ROUTE .COMPLEX Qty: 30 0RF Rx Instructions: take TWO 150 mg tablets of nirmatrelvir with ONE 100 mg tablet of ritonavir twice daily for 5 days phenazopyridine [Pyridium] 100 mg tablet 100 mg PO TID PRN (Reason: pain) Qty: 6 0RF nitrofurantoin monohyd/m-cryst [Macrobid] 100 mg capsule 100 mg PO Q12H 7 Days Qty: 14 0RF Rx Instructions: must administer with a meal/food oxycodone 5 mg tablet 5 mg PO Q8H PRN (Reason: pain) Qty: 10 0RF Rx Instructions: Partial Fill upon patient request. Referrals: Angie Leiva MD [Primary Care Provider] - Stand Alone Forms: Work/School Release Interventions: ED Discharge Assessment Last Done: 12/02/23 16:57 Print Language: Montserratian
[2023-12-02 16:57] VITALS: BP 153/101; PULSE 85; RESP 18; TEMP 36.6; O2SAT 98
== END 2023-12-02 17:11 | disposition home or self-care (01) ==
LOC: HO.ED 17:01
PROVIDERS: Physician Assistant Medical; Emergency Provider Emergency Medicine; PCP Family Medicine
DX: U07.1 COVID-19 (principal)
CPT/HCPCS: 0241U; 99282; 99283

== ENCOUNTER 2024-02-06 23:26 | Emergency (ER) | payer OTHER, SELFPAY ==
--- NOTE | ~2024-02-06 | XR_ITS ---
EXAMINATION: XR CHEST CLINICAL INFORMATION: Cough COMPARISON: 02/14/2022 TECHNIQUE: 2 views of the chest were obtained. FINDINGS: No significant abnormality is noted involving the heart, lungs, mediastinum, bony thorax or soft tissues. XR/XR chest 2V IMPRESSION: Unremarkable examination. Electronically signed by: Ovi Osorio MD 02/07/2024 12:58 AM EDT
[2024-02-06 23:36] VITALS: BP 182/109; PULSE 95; RESP 20; TEMP 36.6; O2SAT 97; BMI 70.8
[2024-02-06 23:43] VITALS: O2SAT 97
--- NOTE | 2024-02-06 23:56 | ED.URI ---
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 for cough mostly dry for last 3 days does have sore throat no chest pain no significant shortness of breath saturating 97% at room air on arrival patient's blood pressure was 182/109 repeat blood pressure 132/78 Related Data Previous Rx's ?Medication ?Instructions ?Recorded nirmatrelvir 300 mg (150 mg See Rx Instructions PO .COMPLEX 02/14/22 x2)-ritonavir 100 mg tablet,dose #30 ea pack (Paxlovid) nitrofurantoin 100 mg PO Q12H 7 days #14 caps 05/01/22 monohydrate/macrocrystals 100 mg capsule (Macrobid) phenazopyridine 100 mg tablet 100 mg PO TID PRN pain 6 doses #6 05/01/22 (Pyridium) tabs oxycodone 5 mg tablet 5 mg PO Q8H PRN pain #10 tabs 11/30/22 cyclobenzaprine 5 mg tablet 5 mg PO TID PRN muscle spasm #10 12/02/23 tabs fluticasone propionate 50 1 spray intranasal DAILY PRN 12/02/23 mcg/actuation nasal congestion 3 days #16 grams spray,suspension (Flonase Allergy Relief) albuterol sulfate 90 mcg/actuation 2 puff inhalation Q6H PRN 02/07/24 aerosol inhaler shortness of breath or wheezing #8.5 grams benzonatate 200 mg capsule 200 mg PO TID PRN cough #20 caps 02/07/24 cefuroxime axetil 500 mg tablet 500 mg PO BID 10 days #20 tabs 02/07/24 Allergies Allergy/AdvReac Type Severity Reaction Status Date / Time diazepam [From Valium] Allergy Palpitation Verified 02/06/24 23:39 s sumatriptan [From Imitrex] Allergy Palpitation Verified 02/06/24 23:39 s topiramate [From Topamax] Allergy Palpitation Verified 02/06/24 23:39 s Review of Systems Review of Systems: Yes all other systems are reviewed and are negative [facility] Past Medical History Medical History Morbid obesity HTN (hypertension) Sleep apnea Surgical History [place] teeth extracted Social History Social History Alcohol intake: current Alcohol intake frequency: does not drink Smoked in Last 30 Days: No Use of substances other than those prescribed or required for medical reasons: No Advance Directives: No Advance Directives Information Provided: Yes Do you have a plan to hurt others: No Plan Patient : No Physical Exam Vital Signs: Vital Signs: Last Vital Signs Temp 97.9 F 02/06/24 23:36 Pulse 81 02/07/24 00:28 Resp 20 02/07/24 00:28 BP 129/78 02/07/24 00:19 Pulse Ox 97 02/06/24 23:43 O2 Del Method Room Air 02/06/24 23:43 BMI result Body Mass Index 70.8 Appearance: Alert. Oriented X3. No acute distress. Eyes: No pallor or icterus ENT: Pharynx normal. Oral Mucosa moist Neck: Normal inspection. Neck supple. CVS: Normal heart rate and rhythm. Pulses normal. Respiratory: No respiratory distress. Equal air entry bilateral, bilateral wheezing decreased air entry no rales Abdomen: Soft and nontender. Bowel sounds are present, no mass palpable, no CVA tenderness Skin: Skin warm and dry. Normal skin color. Normal skin turgor. Extremities: No lower extremity edema. No calf tenderness Neuro: Oriented X 3. No motor deficit. Medications Administered Discontinued Medications Generic Name Dose Route Start Last Admin Trade Name Freq PRN Reason Stop Dose Admin Albuterol Sulfate 2 puff 02/07/24 00:17 02/07/24 00:26 Albuterol Sulfate 90 Mcg 8 Gm Inhaler INHALE 02/07/24 00:18 2 puff ONCE ONE Administration Benzonatate 200 mg 02/07/24 00:17 02/07/24 00:27 Benzonatate 100 Mg Capsule PO 02/07/24 00:18 200 mg ONCE ONE Administration Cefuroxime Axetil 500 mg 02/07/24 00:17 02/07/24 00:24 Cefuroxime Axetil 500 Mg Tablet PO 02/07/24 00:18 500 mg ONCE ONE Administration Medical Decision Making Medical Decision Making [facility] Narrative: Patient has acute bronchitis will prescribe cefuroxime and Tessalon along with albuterol inhaler Lab Data [facility] Lab Attestation statement: I reviewed the patient's lab results. Labs: Lab Results 02/07/24 Range/Units 00:10 COVID-19 (IESHA) Negative (Negative) COVID-19 Clin Com See Note Influenza Type A (VANESSA) Negative (Negative) Influenza Type B (VANESSA) Negative (Negative) Influenza A & B Note See Note Independent Interpretation I performed an independent interpretation of an: Plain X-Ray Interpretation: No pneumonia Discharge Plan Discharge Clinical Impression: Bronchitis Patient Disposition: Home, Self-Care Instructions: Acute Bronchitis (ED) Additional Instructions: Take antibiotic as prescribed Cough drops as prescribed Use inhaler 2 puffs every 4-6 hours as needed Follow with your PCP if not better Prescriptions: New benzonatate 200 mg capsule 200 mg PO TID PRN (Reason: cough) Qty: 20 0RF cefuroxime axetil 500 mg tablet 500 mg PO BID 10 Days Qty: 20 0RF albuterol sulfate 90 mcg/actuation HFA aerosol inhaler 2 puff inhalation Q6H PRN (Reason: shortness of breath or wheezing) Qty: 8.5 0RF No Action Paxlovid 300 mg (150 mg x 2)-100 mg tablets,dose pack See Rx Instructions .ROUTE .COMPLEX Qty: 30 0RF Rx Instructions: take TWO 150 mg tablets of nirmatrelvir with ONE 100 mg tablet of ritonavir twice daily for 5 days phenazopyridine [Pyridium] 100 mg tablet 100 mg PO TID PRN (Reason: pain) Qty: 6 0RF nitrofurantoin monohyd/m-cryst [Macrobid] 100 mg capsule 100 mg PO Q12H 7 Days Qty: 14 0RF Rx Instructions: must administer with a meal/food oxycodone 5 mg tablet 5 mg PO Q8H PRN (Reason: pain) Qty: 10 0RF Rx Instructions: Partial Fill upon patient request. fluticasone propionate [Flonase Allergy Relief] 50 mcg/actuation spray,suspension 1 spray intranasal DAILY PRN (Reason: congestion) 3 Days Qty: 16 0RF Rx Instructions: administer into each nostril cyclobenzaprine 5 mg tablet 5 mg PO TID PRN (Reason: muscle spasm) Qty: 10 0RF Print Language: Spanish
[2024-02-07 00:19] VITALS: BP 129/78
--- NOTE | 2024-02-07 00:20 | MHC.EDTECH ---
vitals taken blood pressure only per orders from Dr Garcia
[2024-02-07] MEDS: cefuroxime axetiL 500 MG TABLET PO (00:24)
[2024-02-07] MEDS: Albuterol Sulfate 90 MCG 8 GM INHALER 2 PUFF INHALE (00:26)
[2024-02-07] MEDS: Benzonatate 100 MG CAPSULE 200 MG PO (00:27)
[2024-02-07 00:28] VITALS: PULSE 81; RESP 20; O2SAT 100
[2024-02-07 00:32] LABS: COVID-19 Test Negative (Negative); IDNOW Serial# 08D9AD1C
[2024-02-07 00:36] LABS: IDNOW Serial# 9DB6401D; Influenza A Negative (Negative); Influenza B2 Negative (Negative)
[2024-02-07 01:05] VITALS: BP 147/92; PULSE 85; RESP 18; TEMP 36.8; O2SAT 100
[2024-02-07 01:06] VITALS: BP 147/92; PULSE 85; RESP 18; TEMP 36.8; O2SAT 100
== END 2024-02-07 01:06 | disposition home or self-care (01) ==
PROVIDERS: Emergency Provider Internal Medicine; PCP Family Medicine
DX: J40 Bronchitis, not specified as acute or chronic (principal); R05.9 Cough, unspecified; J02.9 Acute pharyngitis, unspecified; Z11.52 Encounter for screening for COVID-19
CPT/HCPCS: 71046; 87502; 87635; 94640; 99284; 99285

== ENCOUNTER 2025-02-20 00:22 | Emergency (ER) | payer OTHER, SELFPAY ==
--- NOTE | ~2025-02-20 | CT_ITS ---
CLINICAL HISTORY: dysuria, hematuria. kidney stones? CT abdomen and pelvis without contrast Comparison: CT/SR - CT ABDOMEN PELVIS WITHOUT IV CONTRAST - 05/01/22 09:16 EST Findings: The lung bases are clear. Hepatomegaly. Splenomegaly. Gallbladder and solid organs otherwise unremarkable. No urolithiasis. No bowel obstruction, pneumoperitoneum, or pneumatosis. Uterus and ovaries unremarkable. IUD adequately positioned. Perivesical fat stranding. The bones are intact. IMPRESSION: 1. No urolithiasis or hydronephrosis. 2. Abnormal urinary bladder. Consider cystitis. 3. Hepatosplenomegaly. This document has been electronically signed by: He Barnes MD on 02/20/2025 03:50:08
[2025-02-20 00:24] VITALS: BP 171/96; PULSE 111; RESP 20; TEMP 36.1; O2SAT 96; BMI 69.8
--- OUTSIDE RECORDS SUMMARY | 2025-02-20 00:50 | XMS_ITS | Clinical Summary ---
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 Active magnesium oxide 400 mg magnesium Tab Take by mouth. Active Social History Tobacco Use Types Packs/Day Years Used Date Smoking Tobacco: Some Days Smokeless Tobacco: Never Comments:pt vapes Education Answer Date Recorded Are you interested in more education? Not on julien e 08/08/2022 Are you concerned about learning? Not on file 08/08/2022 No 08/08/2022 No 08/08/2022 Digital Access Answer Date Recorded No 09/06/2022 No 09/06/2022 No 09/06/2022 Reliable internet access at home? Not on file 09/06/2022 Device with a working camera? Not on file Comments Unknown Sex and Gender Information Value Date Recorded Sex Assigned at Female 01/22/2021 2:34 PM EDT Legal Sex Female 10:25 AM EDT Gender Identity Female 01/22/2021 2:34 PM EDT Sexual Orientation Straight 01/22/2021 2: 34 PM EDT Last Filed Vital Signs Vital Sign Reading Time Taken Comments Blood Pressure - - Pulse - - Temperature - - Respiratory Rate - - Oxygen Saturation - - Inhaled Oxygen Concentration - - Weight 182.8 kg (403 lb) 01/22/2021 2:36 PM EDT Height 160 cm (5' 3 ) 01/22/2021 2:36 PM EDT Body Mass Index 71.39 01/22/2021 2:36 PM EDT Plan of Treatment Health Maintenance Due Date Last Done Comments DEPRESSION SCREENING 2003 SMOKING Hx and SMOKELESS TOBACCO SCREENING 08/20/2004 HEPATITIS C SCREENING 08/20/2009 HIV ONE-TIME SCREENING (18-6 5 YEARS) 08/20/2009 PNEUMOCOCCAL VACCINES (0-49 years) (1 of 2 - PCV) 08/20/2010 PAP SMEAR 04/23/2024 04/23/2021 INFLUENZA VACCINE (#1) 2024 02/06/2021 COVID-19 VACCINE ( - 2024-2 6 season) 2024 04/19/2021, 10/11/2020, 09/13/2020 Adult Td,Tdap Booster 12/13/2030 12/13/2020 HEPATITIS A VACCINES Aged Out No long er eligible based on patient's age to complete this topic HIB VACCINES Aged Out No longer eligi ble based on patient's age to complete this topic IPV VACCINES Aged Out No longer eligi ble based on patient's age to complete this topic MENINGOCOCCAL VACCINES (ACWY) Aged Out No longer eligible based on patient's age to complete this topic MENINGOCOCCAL VACCINES (B) Aged Out N o longer eligible based on patient's age to complete this topic Medical Devices Not on file Procedures Procedure Name Priority Date/Time Associated Diagnosis Comments PAP TEST Routine 04/23/2021 12:00 AM EST from Last 3 Months or Most Recently Relevant to Health Maintenance Results * Pap Smear (04/23/2021 12:00 AM EST) 04/23/2021 04/24/2021 9:4 0 AM EST Narrative SEE NARRATIVE - 04/29/2021 3:19 PM EST [address] [id number] [employer]: Lucila Sapp MD DIRECTOR OF STRATEGIC INITIATIVES Cytology Report FINAL DIAGNOSIS A. PAP SMEAR (SUREPATH) CE: SPECIMEN ADEQUACY: Satisfactory for evaluation; transformation zone absent/insufficient. INTERPRETATION: NEGATIVE FOR INTRAEPITHELIAL LESION OR MALIGNANCY. Electronically Signed Out By: ELTON Pringle(ASCP) The Pap test is a screening test primarily for squamous cancers and precursors and has associated false-negative and false-positive results. New technologies such as liquid-based preparations may decrease but will not eliminate all false-negative results. Regular sampling and follow-up of unexplained clinical signs and symptoms are recommended to minimize false negative results. CLINICAL HISTORY Date of Last Menstrual Period: 01-30-2021 Other Clinical Conditions: Screening Pap SPECIMEN SOURCE A: PAP SMEAR (SUREPATH) CE Patient Name: APURVA SULLIVAN : 1990 (Age: 30) Sex: F Institution: [facility] Location: [facility] Date of Collection: 04/23/2021 Date of Reported: 04/29/2021 15:19 Results to: Angie Leiva MD, BS Angie Leiva MD CYTOLOGY ORDERABLES Final Result SEE NARRATIVE from Last 3 Months or Most Recently Relevant to Health Maintenance Insurance [employer] [place] [address] [place] [address] PPO EPO [employer] PPO [employer] PPO [facility] PPO EPO [employer] [place] [place] OF [place] [address] [place] [address] PPO EPO BLUE [facility] PPO AETNA PPO BLUE [facility] PPO EPO BLUE [facility] PPO AETNA PPO [place] EPO [place] OUT OF [facility] PPO AETNA PPO BLUE [facility] PPO EPO [place] OF STATE PPO [employer] PPO [facility] PPO EPO [place] OUT OF [facility] [place] [address] [place] [address] PPO EPO BLUE [facility] PPO [place] PPO EPO [place]UE [place] [facility] PPO 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 It is not the complete legal health record.Formerly [facility]
--- NOTE | 2025-02-20 01:31 | ED_ITS ---
HPI - Female Genitourinary General Chief complaint: Urogenital-Female Stated complaint: Blood In Urine Time Seen by Provider: 02/20/25 01:26 Source: patient Mode of arrival: ambulatory Limitations: no limitations History of Present Illness ED Provider: Giancarlo Akins HPI Narrative: 33-year-old female history of UTI presents to ED for dysuria with blood in urine. Patient denies abdominal pain, nausea, vomiting, fever or chills. Related Data Previous Rx's ?Medication ?Instructions ?Recorded nirmatrelvir 300 mg (150 mg See Rx Instructions PO .CO MPLEX 02/14/22 x2)-ritonavir 100 mg tablet,dose #30 ea pack (Paxlovid) nitrofurantoin 100 mg PO Q12H 7 days #14 ca ps 05/01/22 monohydrate/macrocrystals 100 mg capsule (Macrobid) phenazopyridine 100 mg tablet 100 mg PO TID PRN pain 6 doses #6 05/01/22 (Pyridium) tabs oxycodone 5 mg tablet 5 mg PO Q8H PRN pain #10 tab s 11/30/22 cyclobenzaprine 5 mg tablet 5 mg PO TID PRN muscle spa sm #10 12/02/23 tabs fluticasone propionate 50 1 spray intranasal DAILY PRN 12/02/23 mcg/actuation nasal congestion 3 days #16 grams spray,suspension (Flonase Allergy Relief) albuterol sulfate 90 mcg/actuation 2 puff inhalation Q 6H PRN 02/07/24 aerosol inhaler shortness of breath or wheez ing #8.5 grams benzonatate 200 mg capsule 200 mg PO TID PRN cough #20 caps 02/07/24 cefuroxime axetil 500 mg tablet 500 mg PO BID 10 days #20 tabs 02/07/24 dicyclomine 20 mg tablet 20 mg PO QID PRN abdominal p ain 02/20/25 #12 tabs ketorolac 10 mg tablet 10 mg PO Q6H PRN pain #20 ta bs 02/20/25 phenazopyridine 200 mg tablet 200 mg PO TID PRN pain # 10 tabs 02/20/25 (Pyridium) Allergies Allergy/AdvReac Type Severity Reaction Status Date / Time diazepam (From Valium) Allergy Palpitation Verified 02/20/25 00:25 s sumatriptan (From Imitrex) Allergy Palpitation Verified 02/20/25 00:25 s topiramate (From Topamax) Allergy Palpitation Verified 02/20/25 00:25 s Review of Systems 2 Review of Systems: Dysuria hematuria Yes all other systems are reviewed and are negative [facility] Past Medical History Medical History Morbid obesity HTN (hypertension) Sleep apnea Surgical History [place] teeth extracted Social History Social History Alcohol intake: current Alcohol intake frequency: does not drink Physical Exam 2 Vital Signs: Vital Signs: Last Vital Signs Temp 98.4 F 02/20/25 04:28 Pulse 84 02/20/25 04:28 Resp 20 02/20/25 04:28 BP 135/77 02/20/25 04:28 Pulse Ox 99 02/20/25 04:28 O2 Del Method Room Air 02/20/25 04:28 BMI result Body Mass Index 69.8 Const: General: cooperative, healthy appearing, comfortable, no acute distress, well developed, alert, awake and Physically active O rientation/consciousness: patient oriented x3 HEENT: Head: Yes normal to inspection, Yes No palpable skull fracture present, Yes normocephalic and Yes atraumatic Eyes: General: appearance normal, both eyes and all related structures Neck: Neck: Yes normal visual inspection, Yes full ROM, Yes no lymphadenopathy, Yes no meningeal signs, Yes trachea midline, Yes supple, No anterior neck swelling and No tender Chest: Chest palpation & inspection: normal inspection of the chest and normal palpation of entire chest wall Resp: Effort & Inspection: normal respiratory effort and able to speak in complete sentences Auscultation: clear to auscultation bilaterally Cardio: Jugular venous distension: no JVD Heart sounds: S1 normal heart sound present and S2 normal heart sound present GI: Inspection: Yes normal to inspection Palpation (GI): Soft to palpation, not firm, nontender, no guarding and not rigid : General: Yes no CVA tenderness Back/Spine/Pelvis: Back: no CVA tenderness and No back tenderness Skin: General skin exam: no rashes or lesions noted, elasticity normal and turgor normal Neuro: General: patient oriented x3, gait normal, tone normal, moves all extremities, Normal light touch and pain sensation, no meningeal signs, no focal motor deficits, CN's II-XI intact bilaterally and normal sensation to monofilament Extrem: General: Yes normal to inspection, Yes full ROM and Yes capillary refill normal Psych: Appearance: grossly normal, well kempt and not disheveled Course Reevaluation(s) Reevaluation #1: I Reyna Plaza PA-C have accepted care of the patient at signed out pending labs, imaging and final disposition Labs: Slight leukocytosis with left shift, not anemic, no electrolyte abnormality, urine not infected passing a great amount of hematuria not infected CT abdomen and pelvis:Findings: The lung bases are clear. Hepatomegaly. Splenomegaly. Gallbladder and solid organs otherwise unremarkable. No urolithiasis. No bowel obstruction, pneumoperitoneum, or pneumatosis. Uterus and ovaries unremarkable. IUD adequately positioned. Perivesical fat stranding. The bones are intact. IMPRESSION: 1. No urolithiasis or hydronephrosis. 2. Abnormal urinary bladder. Consider cystitis. 3. Hepatosplenomegaly. Medications Administered Discontinued Medications Generic Name Dose Route Start Last Admin Trade Name Freq PRN Reason Stop Dose Admin Dicyclomine HCl 20 mg 02/20/25 02:13 02/20/25 03:05 Dicyclomine Hcl 10 Mg Capsule PO 02/20/25 02:14 20 mg ONCE ONE Administration Ketorolac Tromethamine 15 mg 02/20/25 02:13 02/20/25 03:06 Ketorolac Tromethamine 15 Mg/Ml Vial IM 02/20/25 02:14 15 mg ONCE ONE Administration Phenazopyridine HCl 200 mg 02/20/25 02:13 02/20/25 03:05 Phenazopyridine Hcl 200 Mg Tablet PO 02/20/25 02:14 200 mg ONCE ONE Administration Medical Decision Making Medical Decision Making MDM Narrative: 33 year female presents to ED for dysuria or hematuria with a any abdominal pain nausea vomiting or flank pain. Patient states no fever or chills. Patient's urine shows hematuria without any bacterial leuko esterase. We will do labs and CAT scan. Signed out TIERRA Anderson. Differential Diagnosis Differential Diagnoses: The differential diagnosis associated with the presentation includes (kdiney stones, UTI, pylenophritis) Admission/Observation Consideration of admission/observation: Escalation of care including admission/observation considered Lab Data MDM Lab Attestation statement: I reviewed the patient's lab results. 02/20/25 02:05 02/20/25 02:05 Labs: Lab Results 02/20/25 02/20/25 Range/Units 01:28 02:05 WBC 12.7 H (4.8-10.8) X10*3/uL RBC 4.84 (4.20-5.50) X10*6/uL Hgb 13.8 (12.0-16.0) g/dl Hct 42.5 (37.0-47.0) % MCV 87.8 (80.0-98.0) fL MCH 28.5 (27.0-33.0) pg MCHC 32.5 (31.0-35.0) g/dl RDW 13.6 (11.0-16.0) % Plt Count 239 (160-400) X10*3/uL MPV 12.1 (9.4-12.3) fL Immature Gran % (Auto) 0.3 (0.0-0.4) % Neut % (Auto) 77.1 H (45-73) % Lymph % (Auto) 16.7 L (20-40) % Elk % (Auto) 4.6 (2-11) % Eos % (Auto) 1.0 (0-4) % Baso % (Auto) 0.3 (0-2) % Lymph # (Auto) 2.1 (1.2-4.9) X10*3/uL Elk # (Auto) 0.6 (0.1-1.2) X10*3/uL Eos # (Auto) 0.1 (0.0-0.4) X10*3/uL Baso # (Auto) 0.0 (0.0-0.2) X10*3/uL Abs Immat Gran (auto) 0.04 H (0.00-0.03) X10*3/uL Absolute Neuts (auto) 9.8 H (2.0-8.3) x10*3/uL Absolute Nucleated RBC 0.000 (0.0-0.012) X10*3/uL Nucleated RBC % (auto) 0.0 (0.0-0.2) /100WBC Sodium 140 (135-145) mmol/L Potassium 4.0 (3.3-5.1) mmol/L Chloride 104 (96-108) mmol/L Carbon Dioxide 27 (22-29) mmol/L Anion Gap 13 (12-20) BUN 16 (9-16) mg/dL Creatinine 0.58 (0.5-1.4) mg/dL Estim Creat Clear Calc 224.1 Estimated GFR > 60 Random Glucose 114 (60-115) mg/dL Calcium 9.2 (8.4-10.2) mg/dL Total Bilirubin 0.4 (0.0-1.0) mg/dL AST 24 (5-31) U/L ALT 22 (0-31) U/L Alkaline Phosphatase 116 (39-117) U/L Total Protein 7.9 (6.5-8.0) g/dL Albumin 4.1 (3.5-5.0) g/dL Urine Color DK YELLOW Urine Appearance Hazy Urine pH 6.5 (5.0-9.0) Ur Specific [place] >= 1.030 H (1.005-1.025) Urine Protein 300 (3+) H (Neg-Trace) mg/dL Urine Glucose (UA) Negative (Negative) mg/dL Urine Ketones Trace (Negative) mg/dL Urine Blood Large (3+) H (Negative) Urine Nitrite Negative (Negative) Ur Leukocyte Esterase Negative (Negative) Urine RBC >20 H (0-2) /HPF Urine WBC 0-5 (0-5) /HPF Ur Squamous Epith Cells 0-2 (0-2) /HPF Urine Bacteria None Seen (None Seen) Hyaline Casts 3-5 (0-2) /LPF Urine Test NEGATIVE (NEGATIVE) Independent Interpretation I performed an independent interpretation of an: CT Scan Radiology Impression Discussion of test interpretation with radiology: I have reviewed the radiologist's reading. Independent Historian Clinical information obtained from an independent historian. History obtained from or confirmed by: Other (patient) Prescription Management I considered prescription management with: Pain Medication Discharge Plan Discharge Clinical Impression: Cystitis Patient Disposition: Home, Self-Care Instructions: Interstitial Cystitis (ED) Additional Instructions: All of your screening labs were essentially normal, with the exception of your urinalysis, you are passing a large amount of blood. The CT scan revealed that you have cystitis. It is concerning that you have interstitial cystitis. You need to follow up with Urology. I will provide you with a contact. Call tomorrow to schedule an appointment. Use the dicyclomine as needed for discomfort. Use the Pyridium as needed for discomfort. Use the ketorolac as needed for discomfort, take with food. Prescriptions: New phenazopyridine [Pyridium] 200 mg tablet 200 mg PO TID PRN (Reason: pain) Qty: 10 0RF dicyclomine 20 mg tablet 20 mg PO QID PRN (Reason: abdominal pain) Qty: 12 0RF ketorolac 10 mg tablet 10 mg PO Q6H PRN (Reason: pain) Qty: 20 0RF Rx Instructions: maximum total duration of 5 days from all oral, intranasal, or parenteral formulations. The patient received an intramuscular dose of Toradol here in the emergency room No Action Paxlovid 300 mg (150 mg x 2)-100 mg tablets,dose pack See Rx Instructions .ROUTE .COMPLEX Qty: 30 0RF Rx Instructions: take TWO 150 mg tablets of nirmatrelvir with ONE 100 mg tablet of ritonavir twice daily for 5 days phenazopyridine [Pyridium] 100 mg tablet 100 mg PO TID PRN (Reason: pain) Qty: 6 0RF nitrofurantoin monohyd/m-cryst [Macrobid] 100 mg capsule 100 mg PO Q12H 7 Days Qty: 14 0RF Rx Instructions: must administer with a meal/food oxycodone 5 mg tablet 5 mg PO Q8H PRN (Reason: pain) Qty: 10 0RF Rx Instructions: Partial Fill upon patient request. fluticasone propionate [Flonase Allergy Relief] 50 mcg/actuation spray,suspension 1 spray intranasal DAILY PRN (Reason: congestion) 3 Days Qty: 16 0RF Rx Instructions: administer into each nostril cyclobenzaprine 5 mg tablet 5 mg PO TID PRN (Reason: muscle spasm) Qty: 10 0RF benzonatate 200 mg capsule 200 mg PO TID PRN (Reason: cough) Qty: 20 0RF cefuroxime axetil 500 mg tablet 500 mg PO BID 10 Days Qty: 20 0RF albuterol sulfate 90 mcg/actuation HFA aerosol inhaler 2 puff inhalation Q6H PRN (Reason: shortness of breath or wheezing) Qty: 8.5 0RF Referrals: Gómez Bermudez MD [Physician, Urology] Referral Note: concern for Interstitial cystitis Stand Alone Forms: Work/School Release Interventions: ED Discharge Assessment Last Done: 02/20/25 04:28 Discharge Date/Time: 02/20/25 04:30 Print Language: Bengali
[2025-02-20 01:38] LABS: UPreg QC Valid YES
[2025-02-20 01:52] LABS: Appearance Urine Hazy; Glucose Urine UA Negative (Negative); PH 6.5 (5.0-9.0); Specific Gravity - Urine >= 1.030 (1.005-1.025); UMIC TRIGGER UACC YES
[2025-02-20 02:09] LABS: MANUAL DIFF FLAG NO
[2025-02-20 02:25] LABS: Hematocrit 42.5 % (37.0-47.0); Hemoglobin 13.8 g/dl (12.0-16.0); Imm Gran Abs Auto 0.04 X10*3/uL (0.00-0.03); Imm Gran Pct Auto 0.3 % (0.0-0.4); Lymphocytes Absolute Auto 2.1 X10*3/uL (1.2-4.9); Mean Corpuscular HGB Conc 32.5 g/dl (31.0-35.0); Mean Corpuscular Hemoglobin 28.5 pg (27.0-33.0); Mean Corpuscular Volume 87.8 fL (80.0-98.0); NRBC Abs Auto 0.000 X10*3/uL (0.0-0.012); NRBC Pct Auto 0.0 /100WBC (0.0-0.2); Platelet Count 239 X10*3/uL (160-400); Red Blood Count 4.84 X10*6/uL (4.20-5.50); White Blood Count 12.7 X10*3/uL (4.8-10.8)
[2025-02-20 02:33] LABS: Alanine Aminotransferase 22 U/L (0-31); Albumin Level 4.1 g/dL (3.5-5.0); Alkaline Phosphatase 116 U/L (39-117); Anion Gap 13 (12-20); Aspartate Amino Transferase 24 U/L (5-31); Blood Urea Nitrogen 16 mg/dL (9-16); Calcium 9.2 mg/dL (8.4-10.2); Carbon Dioxide 27 mmol/L (22-29); Chloride 104 mmol/L (96-108); Creatinine Clr Calc Pharmacy 224.1; Estimated Glomerular Filt Rate > 60; Potassium 4.0 mmol/L (3.3-5.1); Sodium 140 mmol/L (135-145); Total Protein 7.9 g/dL (6.5-8.0)
[2025-02-20 04:27] VITALS: BP 135/77; PULSE 84; RESP 20; TEMP 36.9; O2SAT 99
[2025-02-20 04:28] VITALS: BP 135/77; PULSE 84; RESP 20; TEMP 36.9; O2SAT 99
== END 2025-02-20 04:30 | disposition home or self-care (01) ==
PROVIDERS: Physician Assistant; Emergency Provider Emergency Medicine; PCP Internal Medicine
DX: N30.90 Cystitis, unspecified without hematuria (principal)
CPT/HCPCS: 36415; 74176; 80053; 81001; 81025; 85025; 96372; 99283; 99284; J1885

== ENCOUNTER → 2025-02-20 01:58 | Outpatient (BNV) | payer OTHER, SELFPAY | PROVIDERS: Emergency Provider Emergency Medicine; PCP Internal Medicine; Visit Provider Radiology Diagnostic Radiology | DX: R16.2 Hepatomegaly with splenomegaly, not elsewhere classified (principal) | CPT/HCPCS: 74176 ==